=== PATIENT | male | born 1960 | race Caucasian/White ===

== ENCOUNTER 2019-01-30 11:11 | Emergency (ER) | payer BC, SELFPAY ==
[2019-01-30 11:12] VITALS: BP 184/100; PULSE 78; RESP 16; TEMP 37; O2SAT 99; BMI 36.9
--- NOTE | 2019-01-30 11:30 | ED.DCSUM_ITS ---
- ER Visit Summary Date of Service: 01/30/19 Chief Complaint: Left knee pain for years History of Present Illness: The patient is a 58 M with atraumatic left knee pain. He is improved years. Intermittent swelling and pain. Worse with walking. No fever or redness. No chills. No prior left knee surgery. He had trauma playing football in school but has not had any specific recent trauma. Has never had it injected. She Physical Examination: No acute distress. Vital signs stable afebrile. HEENT exam unremarkable. Lungs clear to auscultation bilaterally. Heart regular rhythm no murmur. Abdomen soft nontender. Extremities moves all 4. Neurovascular intact. Left knee is swollen. There is no effusion. He is able to flex and extend the left knee but has pain with flexion. There is no redness or warmth. No signs of the joint. He is able to do full extension. Extensor mechanism is intact. Left calf is nontender nonswollen without cord. Left foot is neurovascular intact with normal dorsi plantar flexion. Normal sensation. Normal motor strength. Test Results: Left knee x-ray 4 views medial joint space narrowing but otherwise no acute bony abnormality. I did go over the films with the patient. There is a small effusion. Emergency Department Course and Treatment: Prosper with patient. We will hold off on any joint injection at this time. Ice and elevate. Naprosyn for pain and inflammation. Treatment Plan: Ice and elevate. Anti-inflammatories. Follow-up with Dr. Huffman of orthopedics if not improving may need a joint injection. Disposition: dc Impression: Atraumatic left knee pain secondary to arthritis This note was generated with [employer] dictation software. It may contain incorrect words, spelling, and punctuation that were not noted in review of the chart prior to signing ED Disposition - Plan for ED Patient: Referrals: Care Physician,No Primary [Primary Care Provider] -
--- NOTE | 2019-01-30 11:38 | RAD_ITS ---
STUDY: X-RAY - LEFT KNEE REASON FOR EXAM: Male, 58 years old. Chronic pain TECHNIQUE: 4 view(s) of the knee. COMPARISON: None. FINDINGS: Normal visualized distal femur. Normal visualized proximal tibia and fibula. Normal proximal tibiofibular articulation. Normal medial femorotibial compartment. Normal lateral femorotibial compartment. Normal patellofemoral articulation. There is a soft tissue prominence in the suprapatellar region suggesting a small volume joint effusion. The soft tissue structures are unremarkable. RAD/Knee 4 or More Views IMPRESSION: Effusion, as described above. No fracture or dislocation Electronically Signed: Donn Urbano, at 12:07 EDT Tel , Service support ,
--- NOTE | 2019-01-30 12:23 | ED.DEP ---
ED Disposition - Plan for ED Patient: Disposition: Home or Assisted Living Instructions: Osteoarthritis: Managing Pain Prescriptions: Naproxen [Naprosyn] 500 mg PO BID PRN PRN #20 tab PRN Reason: Pain Prescription Printed Referrals: Casey Huffman DO [STAFF PHYSICIAN] - 1 Week if not improving Additional Instructions: Ice and elevate right knee. Increase activity as tolerated. Follow-up with orthopedic doctor if not improving you may need an knee joint injection. At this time we will try anti-inflammatories such as Naprosyn 1 pill twice a day with ice and rest and hopefully that will improve your inflammation in your knee joint.
[2019-01-30 12:29] VITALS: BP 169/99
== END 2019-01-30 12:29 | disposition home or self-care (01) ==
PROVIDERS: Emergency Provider Emergency Medicine
DX: M17.12 Unilateral primary osteoarthritis, left knee (principal)
CPT/HCPCS: 73564; 99282

== ENCOUNTER 2019-02-19 10:45 | Emergency (ER) | payer BC, SELFPAY ==
[2019-02-19 10:46] VITALS: BP 168/111; PULSE 78; RESP 16; TEMP 36.9; O2SAT 96; BMI 36.9
--- NOTE | 2019-02-19 11:31 | ED.VISSUMM ---
- ER Visit Summary Date of Service: 02/19/19 Chief Complaint: Left knee pain History of Present Illness: The patient is a 58 M who continues to have left knee pain. He was seen here 3 weeks ago and had an x-ray which showed a small effusion. He was given NSAIDs and was discharged home. His pain continues and is been worse over the past 3 days. He did not follow-up with an orthopedic surgeon. His pain is worse with movement. He took NSAIDs at home without any relief. He denies any specific injury. No fevers. Physical Examination: Left knee exam reveals a mild effusion. He has tenderness over the medial joint line. He has decreased range of motion secondary to pain. He has full extension. There is no redness or erythema. No pain with small arc range of motion. He has no ligamentous laxity. Negative anterior and posterior drawer test. Test Results: None performed Emergency Department Course and Treatment: Since he had an x-ray done without any new injury I do not feel this need to be repeated. I did inject Kenalog into the joint to see if this would help with his pain. He has identified an orthopedic surgeon in [place] that he will follow-up with. He does have crutches at home. I will give him NSAIDs for pain at home. Treatment Plan: [] Disposition: Discharge Impression: Left knee pain This note was generated with [employer] dictation software. It may contain incorrect words, spelling, and punctuation that were not noted in review of the chart prior to signing ED Disposition - Plan for ED Patient: Referrals: Care Physician,No Primary [Primary Care Provider] -
--- NOTE | 2019-02-19 11:33 | ED.DEP ---
ED Disposition - Plan for ED Patient: Disposition: Home or Assisted Living Instructions: KNEE PAIN, Uncertain Cause Prescriptions: Naproxen [Naprosyn] 500 mg PO BID PRN #20 tab Prescription Printed Referrals: Care Physician,Denise Primary [Primary Care Provider] - Casey Huffman DO [STAFF PHYSICIAN] -
[2019-02-19] MEDS: Triamcinolone Acetonide 40 MG/ML Vial IM (11:41)
== END 2019-02-19 11:50 | disposition home or self-care (01) ==
PROVIDERS: Emergency Provider Emergency Medicine
DX: M25.562 Pain in left knee (principal)
CPT/HCPCS: 20610; 96372; 99282